=== PATIENT | female | born 1980 | race Two or more races ===

== ENCOUNTER 2025-01-14 22:45 | Emergency (ER) | payer MEDICAID ==
[~2025-01-14] VITALS: Ht 162.6 cm; Wt 154.3 kg
[2025-01-14 23:24] VITALS: BP 161/90; PULSE 89; O2SAT 94
--- NOTE | 2025-01-15 02:23 | Physician Documentation ---
History of Present Illness ~ Chief Complaint: Abscess Stated Complaint: ABCESS Time Seen by MD: 02:22 OK to notify your PCP?: Yes Source: patient, RN/MD, RN notes reviewed, old records Mode of Arrival: POV Exam Limitations: no limitations HPI 44 year old female seen in bed 18 presents to the emergency department for complaints of an abscess that began one week prior. She states that she believes she was bit by a bug and now has a pilonidal abscess. Patient states that the abscess is a 9/10 pain. She states that it is draining and endorses a foul odor. Tetanus Within 5 Years: No Medication Reconciliation Allergies: Coded Allergies: No Known Allergies (Unverified , 01/14/25) Review of Systems All Other Systems at this time: Reviewed and Negative ROS As stated above in the HPI, otherwise all systems are reviewed and negative. Physical Exam Vital Signs: RN Vital Signs have been reviewed: Yes, Temperature: 97.8, Source: Temporal, Heart Rate: 89, Respiratory Rate: 16, BP: 161/90, Pulse Oximetry: 94, Weight: 154.300 Oxygen Flow Rate: 0 Pulse Oximetry Reflects: adequate oxygenation Physical Exam General: The patient is well developed, well nourished, nontoxic appearing and is in no acute distress. Skin: [place], warm and dry with no rashes. HEENT: Head was normocephalic and atraumatic. Eyes - pupils equal, round, reactive to light and accommodation. Extraocular movements were intact. Conjunctivae were nonicteric. Ears - bilateral tympanic membranes were normal. The mouth and oropharynx were clear with moist mucous membranes. There were no pharyngeal exudates or erythema. Neck: Supple and nontender. There was no jugular venous distention, lymphadenopathy, thyromegaly or masses. Chest: Clear to auscultation bilaterally without wheezes, rales or rhonchi. No accessory muscle use. No dullness to percussion. Heart: Rate regular and rhythmic. S1, S2. No murmurs. Palpation of the chest wall was normal. No rubs or thrills. Abdomen: 10 by 10 cm area of firmness with 3 by 3 cm area of erythemia above buttocks. Soft, nontender and nondistended. Positive bowel sounds. No guarding or rebound. No hepatosplenomegaly or palpable masses. Extremities: No cyanosis, clubbing or edema. The patient moves all extremities. Pulses were equal and symmetric. Neurologic: Cranial nerves II-XII were intact. Sensation was intact to light touch throughout. Motor strength was 5/5 in all four extremities. Deep tendon reflexes were intact in both upper and lower extremities. Psychologic: The patient was oriented to person, place and time. The patient demonstrated appropriate judgement and insight. Procedures I & D Procedure : Site: pilonidial site Anesthesia: other Blade Size: 11 Prep/Supplies: betadine prep, drapes applied, dressing applied, irrigated, packing placed Incision: blood drained Tolerated Procedure Well?: yes, no complications Procedure Note Patient pre treated with Valium and Diloted. A 4cm incision was made using a size 11 blade. Abscess was 7cm deep and 70cc of pus was drained from the site and it was irrigated using 500 cc of hydrogen peroxide and saline.Large amount of gauze was placed as packing. Progress Results/Orders Reviewed/noted all lab results: Yes Results/Orders Completed Orders - LUIZ SETH MD Hydromorphone 1 Mg/Ml/Pf (Dilaudid Inj.) (01/15/25 02:35) Hydrocodone/Apap 10/325 ([place] 10/325mg (01/15/25 02:35) Naproxen Tablet (Naprosyn Tablet) (01/15/25 02:35) Medications Received in ER Medications (Trade) Dose Ordered Sig/Mila Route PRN Reason Start Time Stop Time Status Last Admin Dose Admin (Dilaudid inj.) 1 mg ONCE ONCE IM 01/15/25 02:35 01/15/25 02:36 DC 01/15/25 02:46 1 MG ([place] 10/325mg tab) 1 tab ONCE ONCE PO 01/15/25 02:35 01/15/25 02:39 DC 01/15/25 02:47 1 TAB (Naprosyn tablet) 500 mg ONCE ONCE PO 01/15/25 02:35 01/15/25 02:36 DC 01/15/25 02:45 500 MG Vital Signs 01/14/25 01/15/25 01/15/25 01/15/25 23:24 02:46 02:47 04:19 Temp 97.8 97.8 Pulse 89 Resp 16 16 15 B/P (MAP) 161/90 Pulse Ox 94 O2 Flow Rate 0 Re-Evaluation Re-Evaluation : Re-Evaluation: Improved Progress Patient was seen and examined. Patient is given reassurance. Patient received pain medications naproxen as well as Dilaudid. Patient then was aggressively irrigated after large incision and drainage and packing of a pilonidal cyst large amounts of pus came out. Patient ultimately tolerated the procedure. She was given reassurance and discharged home. Patient already has antibiotics therefore no additional prescription was written she should have a wound check in 48 hours and packing removed. Patient understood her instructions. Medical Decision Making Additional info obtained from: old records Differential Dx:Considerations: Include: Abscess, Bacteremia, Cellulitis, Erysipelas, Felon, Gas gangrene, Hidrademitis suppurativa, Impetigo, Lymphangit is, Osteromyelitis, Paronychia, Septicemia, Other Departure Time of Disposition: 04:08 Disposition: 01 HOME / SELF CARE / HOMELESS Impression: Primary Impression: Pilonidal abscess Condition: Stable Discharge Instructions: Abscess, Care After, Incision and Drainage, Care After Additional Instructions: Take antibiotics and medications as prescribed. Follow up with Dr. Rodriguez for surgery to the site. Return in 48 hours to have packing replaced. Referrals: NO PRIMARY CARE PROVIDER (PCP) KEKE WORLEY MD Education Educated: Patient Educated regarding: diagnosis, treatment, prognosis, need for follow up Signature Scribe Signature: Scribed for Luiz Seth MD by Franci Crooks . 01/15/25 02:50 Attestation: The note accurately reflects work and decisions made by me.Luiz Seth MD 01/15/25 02:23 LUIZ SETH MD Jan 15, 2025 02:23 FRANCI RAM Jan 15, 2025 02:49
[2025-01-15 02:47] VITALS: RESP 15
[2025-01-15] MEDS: HYDROcodone/acetaminophen 10/325mg tab PO ONE (02:47)
[2025-01-15 04:19] VITALS: TEMP 97.8
== END 2025-01-15 04:22 | disposition home or self-care (01) ==
LOC: ER 22:46
DX: L05.01 Pilonidal cyst with abscess (principal)
CPT/HCPCS: 10081; 96372; 99284; J1171

== ENCOUNTER 2025-01-17 22:17 | Emergency (ER) | payer MEDICAID ==
[~2025-01-17] VITALS: Ht 162.6 cm; Wt 153.2 kg
--- NOTE | 2025-01-18 04:18 | Physician Documentation ---
History of Present Illness ~ Chief Complaint: Wound Re-Check Stated Complaint: WOUND REPACK Time Seen by MD: 04:16 OK to notify your PCP?: Yes Primary Medical Doctor: IRENE Gibbs Source: patient, RN/, RN notes reviewed, old records Mode of Arrival: POV Exam Limitations: no limitations HPI 44 year old female presents to the emergency department seen in bed 07 for a wound re check. Patient was seen three days ago for a I & D to an abscess on her buttocks. She has two abscess and she had one drained. Today she presents complaining of pain in the top abscess as well as a recheck for her previous I & D site. HPI from previous visit: 44 year old female seen in bed 18 presents to the emergency department for complaints of an abscess that began one week prior. She states that she believes she was bit by a bug and now has a pilonidal abscess. Patient states that the abscess is a 9/10 pain. She states that it is draining and endorses a foul odor. Tetanus within 5 years?: No Medication Reconciliation Allergies: Coded Allergies: No Known Allergies (Unverified , 01/14/25) Past Medical History Last Menstrual Period: Dec 27, 2024 Review of Systems All Other Systems at this time: Reviewed and Negative ROS As stated above in the HPI, otherwise all systems are reviewed and negative. Physical Exam Vital Signs: RN Vital Signs have been reviewed: Yes, Temperature: 97.7, Source: Temporal, Heart Rate: 80, Respiratory Rate: 16, BP: 150/87, Pulse Oximetry: 95, Weight: 153.150 Oxygen Flow Rate: 0 Pulse Oximetry Reflects: adequate oxygenation Physical Exam General: The patient is well developed, well nourished, nontoxic appearing and is in no acute distress. Skin: [employer], warm and dry with no rashes. HEENT: Head was normocephalic and atraumatic. Eyes - pupils equal, round, reactive to light and accommodation. Extraocular movements were intact. Conjunctivae were nonicteric. Ears - bilateral tympanic membranes were normal. The mouth and oropharynx were clear with moist mucous membranes. There were no pharyngeal exudates or erythema. Neck: Supple and nontender. There was no jugular venous distention, lymphadenopathy, thyromegaly or masses. Chest: Clear to auscultation bilaterally without wheezes, rales or rhonchi. No accessory muscle use. No dullness to percussion. Heart: Rate regular and rhythmic. S1, S2. No murmurs. Palpation of the chest wall was normal. No rubs or thrills. Abdomen: Small lesion mesuring 1cm that has been drained. Additional lesion measuring 1cm with surrounding erethymia. Soft, nontender and nondistended. Positive bowel sounds. No guarding or rebound. No hepatosplenomegaly or palpable masses. Extremities: No cyanosis, clubbing or edema. The patient moves all extremities. Pulses were equal and symmetric. Neurologic: Cranial nerves II-XII were intact. Sensation was intact to light touch throughout. Motor strength was 5/5 in all four extremities. Deep tendon reflexes were intact in both upper and lower extremities. Psychologic: The patient was oriented to person, place and time. The patient demonstrated appropriate judgement and insight. Procedures I & D Procedure : Site: pilonidal abscess Anesthesia: Lidocaine w/ Epi Blade Size: 11 Prep/Supplies: irrigated, packing placed Incision: mass incised, pus drained Tolerated Procedure Well?: yes, no complications Procedure Note Patients wound extend 5cm, 20cc of pus was drained and flushed and cleaned with hydrogen peroxide. The site was packed and dressing were applied to the wound. Progress Results/Orders Reviewed/noted all lab results: Yes Results/Orders Completed Orders - LUIZ SETH MD Lidocaine 1% W/Epi 1:100,000 (Xylocaine (01/18/25 04:40) Vital Signs 01/17/25 01/18/25 22:54 05:58 Temp 97.7 98.0 Pulse 80 86 Resp 16 14 B/P (MAP) 150/87 169/107 Pulse Ox 95 94 O2 Flow Rate 0 Re-Evaluation Re-Evaluation : Re-Evaluation: Improved Progress Patient was seen and examined. Patient was given reassurance. Patient was here for wound check. Fortunately the lesion superiorly has developed into another abscess could be tracking. The inferior lesion seemed to have completely resolved. Packing was removed there was some trace pus was then later irrigated once again. The patient's superior one seemed to have some trace pus therefore he was inspected later I incised areas large amounts of packing irrigated and then packed the area. So the patient was here both for wound check in also had an additional incision and drainage for another pilonidal cyst. Patient has same plans continue taking antibiotics as prescribed return in 48 hours for re- evaluation and ultimately follow up with your generalized surgeon. Medical Decision Making Additional info obtained from: old records Differential Dx:Considerations: Include: Abscess, Cellulitis, Dressing change, Healing wound, Other Departure Time of Disposition: 05:40 Disposition: 01 HOME / SELF CARE / HOMELESS Impression: Primary Impression: Wound check, abscess Additional Impressions: Pilonidal abscess Additional pilonidial abscess Condition: Stable Discharge Instructions: Abscess, Care After, Incision and Drainage, Care After Additional Instructions: Please return to the emergency department for a wound check up in 48 hours. Continue use of antibiotics. Referrals: NO PRIMARY CARE PROVIDER (PCP) Education Educated: Patient Educated regarding: diagnosis, treatment, prognosis, need for follow up Signature Scribe Signature: Scribed for Luiz Seth MD by Franci Crooks . 01/18/25 04:42 Attestation: The note accurately reflects work and decisions made by me.Luiz Seth MD 01/18/25 04:18 LUIZ SETH MD Jan 18, 2025 04:18 FRANCI RAM Jan 18, 2025 04:41
[2025-01-18] MEDS: LIDOcaine 1% W/epiNEPHrine 1:100,000 20ml vial SQ ONE (04:40)
[2025-01-18 05:58] VITALS: BP 169/107; PULSE 86; RESP 14; TEMP 98; O2SAT 94
== END 2025-01-18 06:03 | disposition home or self-care (01) ==
LOC: ER 22:18
DX: L05.01 Pilonidal cyst with abscess (principal)
CPT/HCPCS: 10080; 99282; A6258; A6449

== ENCOUNTER 2025-01-20 01:45 | Emergency (ER) | payer MEDICAID ==
[~2025-01-20] VITALS: Ht 162.6 cm; Wt 154.7 kg
[2025-01-20 02:12] VITALS: BP 150/94; PULSE 78; RESP 18; O2SAT 95
--- NOTE | 2025-01-20 03:34 | Physician Documentation ---
History of Present Illness ~ Chief Complaint: Wound Re-Check Stated Complaint: RE-PACKAGING INCISIONS Time Seen by MD: 03:32 [facility] HPI 44-year-old female presenting for a wound check. Patient had a pilonidal cyst incised and drained several days ago and has packing in place. She is on oral antibiotics and states that her pain is improving and she is feeling better. No other complaints. Tetanus within 5 years?: No Medication Reconciliation Allergies: Coded Allergies: No Known Allergies (Unverified , 01/14/25) Physical Exam Vital Signs: Temperature: 97.0, Source: Temporal, Heart Rate: 78, Respiratory Rate: 18, BP: 150/94, Pulse Oximetry: 95, Weight: 154.700 Oxygen Flow Rate: 0 Physical Exam I have reviewed the triage vitals. CONST: Well developed and well nourished. In no acute distress HENT: Head Atraumatic EYES: Pupils are equal, round and reactive to light. Normal conjunctiva NECK: Normal range of motion. Supple. CARDIO: Normal rate and regular rhythm. No murmurs, rubs, or gallops. S1, S2. PULM/CHEST: No respiratory distress. Lungs clear to auscultation. No wheeze ABD: Soft and nontender. Nondistended. Bowel sounds normal. No guarding. : Exam deferred MSK: No edema. No deformity. NEURO: Alert and oriented to person, place and time. Moving all extremities SKIN: Warm and dry. There are two open wounds with packing in place over the gluteal cleft. Minimal surrounding erythema. PSYCH: Normal mood and affect. Good eye contact. Progress Results/Orders Results/Orders Vital Signs 01/20/25 02:12 Temp 97.0 Pulse 78 Resp 18 B/P (MAP) 150/94 Pulse Ox 95 O2 Flow Rate 0 Departure Disposition: 01 HOME / SELF CARE / HOMELESS Impression: Primary Impression: Wound check, abscess Condition: Stable Discharge Instructions: Wound Care, Adult Additional Instructions: Please return in two days for another wound check. Continue with her oral antibiotics. Return to the ED sooner with any acutely worsening symptoms. Referrals: NO PRIMARY CARE PROVIDER (PCP) BAYLEE SEBASTIAN MD Jan 20, 2025 03:34
[2025-01-20 03:40] VITALS: TEMP 97
== END 2025-01-20 03:41 | disposition home or self-care (01) ==
LOC: ER 01:46
DX: Z48.817 Encounter for surgical aftercare following surgery on the skin and subcutaneous tissue (principal)
CPT/HCPCS: 99281; A6266; A6258

== ENCOUNTER 2025-01-22 16:01 | Emergency (ER) | payer MEDICAID ==
[~2025-01-22] VITALS: Ht 162.6 cm; Wt 150.9 kg
--- NOTE | 2025-01-22 18:41 | Physician Documentation ---
History of Present Illness ~ Chief Complaint: Wound Stated Complaint: WOUND CHECK Time Seen by MD: 16:55 OK to notify your PCP?: Yes Primary Medical Doctor: IRENE Gibbs Source: patient Mode of Arrival: POV Exam Limitations: no limitations HPI 44-year-old female here for wound packing. Reports she comes in every 48 hours for a tunneling wound having a pilonidal cyst drained to have packing changed. She reports that the packing from the top wound came out yesterday on accident. Took her last dose of oral antibiotics today and states that the pain has improved and she is feeling much better. No other medical complaints at this time. Tetanus within 5 years?: Yes (2023) Medication Reconciliation Allergies: Coded Allergies: No Known Allergies (Unverified , 01/22/25) Review of Systems All Other Systems at this time: Reviewed and Negative Physical Exam Vital Signs: RN Vital Signs have been reviewed: Yes, Temperature: 98.4, Source: Temporal, Heart Rate: 100, Respiratory Rate: 18, BP: 188/90, Pulse Oximetry: 98, Weight: 150.910 Oxygen Flow Rate: 0 Pulse Oximetry Reflects: adequate oxygenation Physical Exam General: Alert, no distress. HEENT: No injection, moist mucous membranes. Neck: Full range of motion. Respiratory: No respiratory distress, equal chest rise and fall. Chest: No accessory muscle use. Cardiovascular: Regular rate and rhythm. Gastrointestinal: Nondistended. Extremities: Normal range of motion, no deformity. Neurologic: Oriented x4. Psychiatric: Normal mood and affect. Skin: Normal color, warm and dry. There are two open wounds, top wound has no packing but lower wound has packing in place over the gluteal cleft. Minimal surrounding erythema. Progress Results/Orders Results/Orders Vital Signs 01/22/25 16:04 Temp 98.4 Pulse 100 Resp 18 B/P (MAP) 188/90 Pulse Ox 98 O2 Flow Rate 0 Medical Decision Making Findings Two draining wounds noted with packing in place on the bottom wound of the gluteal cleft. I replaced the packing to the bottom wound but there was no room for packing in the top wound. Placed a nonadherent dressing over the top. Wounds appear to be healing well. Differential Dx:Considerations: Include: Abscess, Dressing change, Healing wound Departure Disposition: 01 HOME / SELF CARE / HOMELESS Impression: Primary Impression: Wound check, abscess Condition: Stable Discharge Instructions: How to Change Your Wound Dressing Referrals: NO PRIMARY CARE PROVIDER (PCP) Education Educated: Patient Educated regarding: diagnosis, treatment, prognosis, need for follow up Additional Comment Medical Screen Exam This patient recieved a medical screening examination. After reviewing the individual's medical complaints with presenting symptoms and performing an appropriate physical examination, it was determined that no immediate life- threatening emergency medical condition is present. This individual is also not a women having contractions. Signature Scribe Signature: . Attestation: Parts of this note were created using [employer] voice recognition software program. While efforts were made to correct any mistakes made by this voice recognition software program, nonsensical phrases may remain in this note. In addition, there may be errors and syntax, grammar, content and spelling. Scribed for Elvira Sotelo Hide Grader by Elvira Russell NP . 01/22/25 18:44 ELVIRA SOTELO NURSES EDUCATOR Jan 22, 2025 18:41
[2025-01-22 18:57] VITALS: BP 180/78; PULSE 99; RESP 18; TEMP 98.6; O2SAT 99
== END 2025-01-22 18:59 | disposition home or self-care (01) ==
LOC: ER 16:01
DX: Z48.817 Encounter for surgical aftercare following surgery on the skin and subcutaneous tissue (principal)
CPT/HCPCS: 99281

== ENCOUNTER 2025-01-24 20:46 | Emergency (ER) | payer MEDICAID ==
[~2025-01-24] VITALS: Ht 162.6 cm; Wt 150.9 kg
--- NOTE | 2025-01-24 22:59 | Physician Documentation ---
History of Present Illness ~ Chief Complaint: Wound Re-Check Stated Complaint: WOUND Time Seen by MD: 21:03 Primary Medical Doctor: IRENE WEINBERG Patient is seen today with complaints of needing pilonidal cyst wound repacked. She states she has a consult with a general surgeon coming up soon. She has no other concern or complaint at this time. She denies any fevers or chills or chest pain or shortness of breath or abdominal pain or nausea, vomiting, diarrhea. Tetanus within 5 years?: Yes (2023) Medication Reconciliation Allergies: Coded Allergies: No Known Allergies (Unverified , 01/22/25) Review of Systems Constitutional: Denies: chills, fever, weakness Eyes: Denies: pain, blurred vision ENT: Denies: ear pain, nose pain, throat pain, mouth pain Respiratory: Denies: cough, shortness of breath Cardiovascular: Denies: chest pain, palpitations Gastrointestinal: Denies: abdominal pain, nausea, vomiting Genitourinary: Denies: burning, dysuria Female Genitalia: Denies: vaginal discharge, pelvic pain Neurological: Denies: headache, dizziness Musculoskeletal: Denies: pain, swelling Integumentary: Denies: rash, lesions Allergic/Immunologic: Denies: hives, itching Hematologic/Lymphatic: Denies: no symptoms reported Psychiatric: Denies: depression, anxiety Physical Exam Vital Signs: Temperature: 97.7, Heart Rate: 78, Respiratory Rate: 16, BP: 158/8 0, Pulse Oximetry: 97, Weight: 150.910 Oxygen Flow Rate: 0 Physical Exam General: Awake and Alert, no acute distress. HEENT: Conjunctiva pink, Sclera clear, Mucus Membranes moist. Neck: Supple without masses and tenderness. Resp: Unlabored. Lungs clear to auscultation bilaterally. Heart: Regular Rate and rhythm, normal S1 and S2 without murmur, rub or gallop. Extremities: No cyanosis,clubbing or edema. Skin: Patient on exam does have open wound consistent with pilonidal cyst with packing in place and purulent drainage. There is mild surrounding induration and erythema which appears to be resolving. Progress Results/Orders Results/Orders Vital Signs 01/24/25 21:00 Temp 97.7 Pulse 78 Resp 16 B/P (MAP) 158/80 Pulse Ox 97 O2 Flow Rate 0 Medical Decision Making Findings Patient is seen today with complaints of needing pilonidal cyst wound repacked. She states she has a consult with a general surgeon coming up soon. She has no other concern or complaint at this time. She denies any fevers or chills or chest pain or shortness of breath or abdominal pain or nausea, vomiting, diarrhea. Patient did have wound repacked in the ED today. Patient will return in two days for repacking of the wound and will follow up with General surgery for consultation as soon as possible. Continue Medications as currently prescribed. Departure Disposition: HOME / SELF CARE / HOMELESS Impression: Primary Impression: Pilonidal abscess Condition: Improved Discharge Instructions: Abscess, Care After Additional Instructions: Patient did have wound repacked in the ED today. Patient will return in two day s for repacking of the wound and will follow up with General surgery for consultation as soon as possible. Continue Medications as currently prescribed. Referrals: NO PRIMARY CARE PROVIDER (PCP) Signature Scribe Signature: No scribe Attestation: No scribe SURESH RAYA PAC Jan 24, 2025 22:59
[2025-01-24 23:07] VITALS: BP 155/78; PULSE 76; RESP 18; TEMP 98.6; O2SAT 99
== END 2025-01-24 23:08 | disposition home or self-care (01) ==
LOC: ER 20:47
DX: L05.01 Pilonidal cyst with abscess (principal)
CPT/HCPCS: 99281; 99282; A6258

== ENCOUNTER 2025-01-26 19:58 | Emergency (ER) | payer MEDICAID ==
[~2025-01-26] VITALS: Ht 162.6 cm; Wt 129.0 kg
[2025-01-26 20:20] VITALS: BP 159/77; PULSE 89; RESP 15; O2SAT 95
--- NOTE | 2025-01-26 21:25 | Physician Documentation ---
History of Present Illness ~ Chief Complaint: Wound Re-Check Stated Complaint: WOUND CARE Time Seen by MD: 20:32 Primary Medical Doctor: IRENE Gibbs [facility] This very pleasant 44-year-old female presents to the ED for a wound recheck after having an abscess drained on her sacrum. She states that she ran out antibiotics on Thursday denies any increased pain or swelling denies any fevers. States she is primarily here to have her wound repacked secondary to having packing placed. She has been compliant with her medication regimen and wound care instructions f. Day of Onset of Wound: Jan 26, 2025 Tetanus within 5 years?: Yes (2023) Medication Reconciliation Allergies: Coded Allergies: No Known Allergies (Unverified , 01/26/25) Review of Systems All Other Systems at this time: Reviewed and Negative ROS As stated above in the HPI, otherwise all systems are reviewed and negative. Physical Exam Vital Signs: Temperature: 96.3, Source: Temporal, Heart Rate: 89, Respiratory Rate: 15, BP: 159/77, Pulse Oximetry: 95, Weight: 129.000 Physical Exam General: Alert, no apparent distress. Neurologic: Oriented x4. Psychiatric: Normal mood and affect. Skin: Normal color, warm and dry. No edema, no ecchymosis. Packing had already fallen out into the bandage and dried out. Wound did not show any signs of purulent discharge and no erythema was evident ,wound is well in the process of healing Progress Results/Orders Results/Orders Vital Signs 01/26/25 01/26/25 20:20 21:40 Temp 96.3 96.3 Pulse 89 Resp 15 B/P (MAP) 159/77 Pulse Ox 95 Medical Decision Making Findings This patient has been very compliant with the wound care instructions as evidence as her presentation today showed signs of appropriate healing. Because of the packing had already fallen out and was dry I chose not to repack and allow for her ongoing healing to take place. Tell the patient to keep the area clean and dry and bandaged while and he will Differential Dx:Considerations: Include: Abscess, Cellulitis, Dressing change, Healing wound, Other Departure Disposition: HOME / SELF CARE / HOMELESS Impression: Primary Impression: Wound Additional Impressions: Pilonidal abscess Wound check, abscess Discharge Instructions: Abscess, Care After Additional Instructions: As I instructed to keep the area clean and dry and bandaged while it heals. you are doing a great job taking care of your wound Referrals: NO PRIMARY CARE PROVIDER (PCP) Signature Scribe Signature: g Attestation: Scribed for Ike Little Manager Technical Sales by Ike Russell NP . 01/29/25 20:15 IKE LITTLE NP Jan 26, 2025 21:24
[2025-01-26 21:40] VITALS: TEMP 96.3
== END 2025-01-26 21:41 | disposition home or self-care (01) ==
LOC: ER 19:59
DX: L05.01 Pilonidal cyst with abscess (principal)
CPT/HCPCS: 99281